=== PATIENT | female | born 1980 | race Caucasian/White ===

== ENCOUNTER 2021-12-02 10:19 | Emergency (ER) | payer MEDICAID ==
[~2021-12-02] VITALS: Ht 157.5 cm; Wt 106.6 kg
[2021-12-02 10:30] VITALS: BP_SYST 177
--- NOTE | 2021-12-02 15:00 | NUR ---
Patient left without being seen.
== END 2021-12-02 15:00 | disposition left against medical advice (07) ==
LOC: SED 10:19
DX: R10.9 Unspecified abdominal pain (principal); Z53.21 Procedure and treatment not carried out due to patient leaving prior to being seen by health care provider